=== PATIENT | male | born 1970 | race Caucasian/White ===

== ENCOUNTER 2017-11-20 20:02 | Inpatient (IN) | payer OTHER ==
[~2017-11-20] VITALS: Ht 170.2 cm; Wt 92.6 kg
--- NOTE | ~2017-11-20 | EKG ---
[address] [address] ELECTROCARDIOGRAM REPORT Name: BULLARDABDIEL Room #: 209-P ADM IN M.R.#: [id number] Admission: 11/20/17 Attend Phys: John Hampton MD Discharge: Date of : 70 Report #: [id number] THIS REPORT FOR: //name// [facility] ED Test Date: 2017-11-20 Test Time: 20:36:09 Pat Name: ABDIEL BULLARD Department: Room: 209 Gender: M Collection Correspondent: LEO : 1970 Requested By: Saad Mckeon Order Number: [id number] MD: Dipesh Roman Measurements Intervals [place] Rate: 57 P: -23 [place]: 186 QRS: 33 QRSD: 102 T: 25 QT: 433 QTc: 422 Interpretive Statements Sinus rhythm No previous ECG available for comparison Electronically Signed On 11-21-2017 9:11:49 MEDICAL OFFICE REPRESENTATIVE by Dipesh Roman [email or web address] <ELECTRONICALLY SIGNED> By: Dipesh Roman MD 11/21/17 0911 2036 35 MD JIN Rutherford
--- NOTE | ~2017-11-20 | 2DMMODE ---
[facility] [address] [place] [address] 2 D/M-MODE ECHOCARDIOGRAM Name: BULLARDABDIEL Room #: 209-P [facility] IN .R.#: [id number] Admission: 11/20/17 Attend Phys: John Hampton, Discharge: Date of : 70 Date of Service: 11/21/17 1834 Report #: [id number] THIS REPORT FOR: //name// APPROVED REPORT Study performed: 11/21/2017 11:25:05 EXAM: Comprehensive 2D, Doppler, and color-flow Echocardiogram Patient Location: Bedside Room #: 209 Status: on-call BSA: 2.05 HR: 52 bpm BP: 111/72 mmHg Rhythm: NSR Other Information Study Quality: Adequate Risk Factors: Cardiac Risk Factors: HTN Indications Dyspnea Chest Pain 2D Dimensions LVEF(%): 53.51 (>50%) IVSd: 9.83 (7-11mm) LVOT Diam: 21.00 (18-24mm) LVDd: 43.56 mm PWd: 10.39 (7-11mm) Ascending Ao: 31.30 (22-36mm) LVDs: 31.63 (25-40mm) Aortic Root: 27.36 mm LV Single Plane 4CH: 59.77 % LV Single Plane 2CH: 61.33 % Pompa's LVEF: 60.55 % Biplane EF: 60.8 % Volumes Left Atrial Volume (Systole) Single Plane 4CH: 25.36 mL Single Plane 2CH: 34.71 mL LA ESV Index: 17.00 mL/m2 Aortic Valve AoV Peak Radames.: 1.35 m/s AO Peak Gr.: 7.37 mmHg LVOT Max P.04 mmHg [facility] [address] [address] 2 D/M-MODE ECHOCARDIOGRAM Name: ABDIEL BULLARD Room #: 209-[facility] IN ..#: [id number] Admission: 11/20/17 Attend Phys: John Hampton, Discharge: Date of : 70 Date of Service: 11/21/17 1834 Report #: [id number] LVOT Max V: 0.87 m/s ZAC Vmax: 2.27 cm2 Mitral Valve E/A Ratio: 1.2 MV Decel. Time: 446.12 ms MV E Max Radames.: 0.72 m/s MV A Radames.: 0.59 m/s MV PHT: 129.37 ms IVRT: 87.66 ms Pulmonary Valve PV Peak Radames.: 1.16 m/s PV Peak Gr.: 5.38 mmHg Pulmonary Vein P Vein S: 0.61 m/s P Vein A: 0.25 m/s P Vein D: 0.56 m/s P Vein A Dur.: 129.2 msec P Vein S/D Ratio: 1.09 Left Ventricle The left ventricle is normal size. There is normal LV segmental wall motion. There is normal left ventricular wall thickness. Left ventricular systolic function is normal. The left ventricular ejection fraction is within the normal range. 50-55% The left ventricular diastolic function is normal. Right Ventricle The right ventricle is normal size. The right ventricular systolic function is normal. Atria The left atrium size is normal. The right atrium size is normal. Aortic Valve The aortic valve is normal in structure. No aortic regurgitation is present. There is no aortic valvular stenosis. Mitral Valve The mitral valve is normal in structure. There is no mitral valve regurgitation noted. No evidence of mitral valve stenosis. Tricuspid Valve The tricuspid valve is normal in structure. There is no tricuspid valve regurgitation noted. [address] [address] 2 D/M-MODE ECHOCARDIOGRAM Name: ABDIEL BULLARD Room #: 209-P [facility] IN [facility]#: [id number] Admission: 11/20/17 Attend Phys: John Hampton, Discharge: Date of : 70 Date of Service: 11/21/17 1834 Report #: [id number] Pulmonic Valve The pulmonary valve is normal in structure. There is no pulmonic valvular regurgitation. Great Vessels The aortic root is normal in size. IVC is normal in size and collapses with >50% inspiration Pericardium There is no pericardial effusion. <Conclusion> The left ventricle is normal size. Left ventricular systolic function is normal. The left ventricular ejection fraction is within the normal range. 50-55% The left ventricular diastolic function is normal. The right ventricle is normal size. The left atrium size is normal. The aortic valve is normal in structure. There is no mitral valve regurgitation noted. There is no tricuspid valve regurgitation noted. There is no pericardial effusion. <ELECTRONICALLY SIGNED> By: Elton Ruby MD, FACC 11/21/171833 33 33 Elton Ruby MD, FACC /INF
[2017-11-20 20:07] VITALS: BP 174/88
[2017-11-20 20:33] LABS: ABSOLUTE NEUTROPHILS 6.3 thou/uL (1.4-8.2); BASOPHILS 0.6 % (0.0-2.0); EOSINOPHILS 0.9 % (0.0-3.0); HEMATOCRIT 41.4 % (42.0-52.0); HEMOGLOBIN 14.4 gm/dL (14.0-18.0); LYMPHOCYTES 15.9 % (24.0-44.0); MCH 29.5 pg (26.0-34.0); MCHC 34.7 g/dL (28.0-37.0); MCV 85.1 fL (80.0-100.0); MONOCYTES 8.9 % (1.0-8.0); PLATELET COUNT 198 thou/uL (150-400); POLYS 73.7 % (36.0-66.0); RBC 4.87 mil/uL (4.50-6.00); RDW 13.4 % (10.5-14.5); WBC 8.5 thou/uL (4.0-11.0)
[2017-11-20 20:41] LABS: ANION GAP 9 mmol/L (7-16); BUN 14 mg/dL (7-18); CALCIUM 9.7 mg/dL (8.5-10.1); CHLORIDE 98 mmol/L (98-107); CO2 28 mmol/L (21-32); CREATININE 1.2 mg/dL (0.7-1.3); GLUCOSE 116 mg/dL (74-106); POTASSIUM 3.5 mmol/L (3.5-5.1); SODIUM 135 mmol/L (136-145)
[2017-11-20] MEDS ORDERED: HYDROCHLOROTHIA25 M2 PO (20:41)
[2017-11-20] MEDS ORDERED: IBUPROFEN 800800 M1 PO (20:42)
[2017-11-20] MEDS ORDERED: GABAPENTIN 100100 MG PO (20:42)
[2017-11-20] MEDS ORDERED: FLEXERIL PO (20:42)
[2017-11-20] MEDS ORDERED: SYNTHROID100 MCG PO (20:42)
[2017-11-20 20:49] LABS: ALBUMIN 4.2 g/dL (3.4-5.0); DIRECT BILIRUBIN 0.1 mg/dL (<0.1-0.3); SGOT 73 U/L (15-37); SGPT 156 U/L (30-65); TOTAL BILIRUBIN 0.5 mg/dL (<0.1-1.0); TOTAL PROTEIN 8.5 g/dL (6.4-8.2); TROPONIN-I < 0.04 ng/mL (<0.06)
[2017-11-20 22:34] VITALS: BP 104/60
[2017-11-20 22:35] VITALS: BP 109/66
[2017-11-20 23:47] VITALS: BP 120/69
[2017-11-21] VITALS: BP 120/69
[2017-11-21 02:53] LABS: HEMATOCRIT 38.5 % (42.0-52.0); HEMOGLOBIN 13.6 gm/dL (14.0-18.0); MCH 30.1 pg (26.0-34.0); MCHC 35.4 g/dL (28.0-37.0); RBC 4.53 mil/uL (4.50-6.00); RDW 13.3 % (10.5-14.5); WBC 7.8 thou/uL (4.0-11.0)
[2017-11-21 02:57] LABS: CHOLESTEROL 126 mg/dL (<200); HDL CHOLESTEROL 34 mg/dL (>40); LDL CHOLESTEROL 74 mg/dL (<100); TC:HDL 3.7 Ratio (Not establshd); TRIGLYCERIDE 90 mg/dL (<150); VLDL 18 mg/dL (<40)
[2017-11-21 02:59] LABS: SERUM ASSESSMENT Clear
[2017-11-21 06:17] VITALS: BP 124/82
[2017-11-21 07:32] VITALS: BP 111/72
[2017-11-21 15:56] VITALS: BP 117/71
[2017-11-21 20:08] LABS: GLYCOHEMOGLOBIN (HGB A1C) 5.6 % (4.8-5.6)
[2017-11-21 20:40] VITALS: BP 126/77
[2017-11-21 21:48] LABS: HEMATOCRIT 39.4 % (42.0-52.0); HEMOGLOBIN 13.8 gm/dL (14.0-18.0); MCH 29.9 pg (26.0-34.0); MCHC 35.1 g/dL (28.0-37.0); MCV 85.4 fL (80.0-100.0); RBC 4.62 mil/uL (4.50-6.00); RDW 13.4 % (10.5-14.5); WBC 7.8 thou/uL (4.0-11.0)
[2017-11-21 21:56] LABS: CALCIUM 9.3 mg/dL (8.5-10.1); POTASSIUM 3.4 mmol/L (3.5-5.1)
[2017-11-21 23:02] LABS: URINE BILIRUBIN NEGATIVE (Negative); URINE BLOOD NEGATIVE (Negative); URINE CLARITY CLEAR; URINE COLOR YELLOW; URINE GLUCOSE-RANDOM* NEGATIVE (Negative); URINE KETONES NEGATIVE (Negative); URINE LEUKOCYTES-REFLEX NEGATIVE (Negative); URINE NITRITE-REFLEX NEGATIVE (Negative); URINE PROTEIN (DIPSTICK) NEGATIVE (Negative); URINE SPECIFIC GRAVITY <= 1.005 (1.005-1.035); URINE UROBILINOGEN 0.2 E.U./dl (0.2-1.0)
[2017-11-22 04:55] VITALS: BP 132/90
[2017-11-22 07:44] VITALS: BP 126/84
[2017-11-22] MEDS ORDERED: ASPIR 8181 MG PO (08:54)
[2017-11-22 09:22] VITALS: BP 126/84
== END 2017-11-22 10:03 | disposition home or self-care (01) | DRG 313 ==
LOC: ER 20:02 → 2N 22:06 → EROBS 22:06 → 2N 22:45
PROVIDERS: Nurse Practitioner Acute Care; Nurse Practitioner Family; Physician Assistant
DX: R07.9 Chest pain, unspecified (principal); I10 Essential (primary) hypertension; E03.9 Hypothyroidism, unspecified; G62.9 Polyneuropathy, unspecified; M54.9 Dorsalgia, unspecified; G89.29 Other chronic pain; F12.90 Cannabis use, unspecified, uncomplicated; Z87.891 Personal history of nicotine dependence; Z79.899 Other long term (current) drug therapy; Z79.82 Long term (current) use of aspirin; Z82.49 Family history of ischemic heart disease and other diseases of the circulatory system
CPT/HCPCS: 10081